=== PATIENT | female | born 1950 | race Caucasian/White ===

== ENCOUNTER 2017-01-29 06:27 | Day surgery (SDC) | payer BC, MEDICARE ==
[2017-01-29] MEDS ORDERED: Sodium Chloride 0.9% 1,000 ML IV SCH (07:00)
[2017-01-29] MEDS ORDERED: Midazolam 1 MG/ML 2 ML SDV ONE (07:16)
[2017-01-29] MEDS ORDERED: Propofol 200 MG/20 ML SDV ONE (07:16)
[2017-01-29] MEDS ORDERED: fentaNYL 100 MCG/2 ML SDV ONE (07:16)
[2017-01-29 09:12] VITALS: BP 135/59
--- NOTE | 2017-01-30 08:39 | OR ---
DATE OF PROCEDURE: 01/29/2017 PROCEDURE: Colonoscopy. FINDINGS: 1. Diverticulosis, moderate, limited to the sigmoid colon. 2. No other gross abnormalities. COMPLICATIONS: None. MDS NURSE: None. ANESTHESIA: MAC. RISKS: Risks, benefits, alternatives, and limitations including but not limited to infection, bleeding, and perforation were explained to the patient, and they wished to proceed. PREOPERATIVE DIAGNOSIS: Family history of colorectal cancer. POSTOPERATIVE DIAGNOSIS: Family history of colorectal cancer. PROCEDURE IN DETAIL: The patient was placed in left lateral decubitus position. Digital rectal exam was performed without abnormality. The scope was introduced and advanced atraumatically to the ileocecal valve. The scope was brought back to the ascending, transverse, descending colon, and retroflexed. No evidence of old or new blood. The patient's diverticulosis would be described as mild to moderate and limited to sigmoid colon. No polyps or no other abnormalities. The patient tolerated the procedure well. Yrn Beck MD /[id number]
== END 2017-01-29 09:28 | disposition home or self-care (01) ==
LOC: JP.SDS 06:27
PROVIDERS: ATTEND Surgery
DX: Z12.11 Encounter for screening for malignant neoplasm of colon (principal); K57.30 Diverticulosis of large intestine without perforation or abscess without bleeding; Z80.0 Family history of malignant neoplasm of digestive organs; J45.909 Unspecified asthma, uncomplicated; E78.00 Pure hypercholesterolemia, unspecified; Z88.0 Allergy status to penicillin; Z98.890 Other specified postprocedural states; Z98.51 Tubal ligation status
CPT/HCPCS: 45378; J2250; J2704; J3010; J7040

== ENCOUNTER 2022-03-15 08:49 | Day surgery (SDC) | payer MEDICARE, OTHER ==
[2022-03-15] MEDS ORDERED: Sodium Chloride 0.9% 1,000 ML IV SCH (09:30)
[2022-03-15] MEDS ORDERED: fentaNYL 100 MCG/2 ML SDV ONE (09:56)
[2022-03-15] MEDS ORDERED: Propofol 200 MG/20 ML SDV ONE (09:56)
[2022-03-15 11:43] VITALS: PULSE 63
[2022-03-15 11:44] VITALS: BP 133/45
== END 2022-03-15 11:57 | disposition home or self-care (01) ==
LOC: JP.SDS 08:49
PROVIDERS: ATTEND Surgery
DX: Z12.11 Encounter for screening for malignant neoplasm of colon (principal); K57.30 Diverticulosis of large intestine without perforation or abscess without bleeding; K21.9 Gastro-esophageal reflux disease without esophagitis; Z80.0 Family history of malignant neoplasm of digestive organs; Z88.0 Allergy status to penicillin
CPT/HCPCS: J2704; J3010; J7030

== ENCOUNTER 2023-10-09 10:55 | Emergency (ER) | payer MEDICARE, OTHER ==
[2023-10-09] MEDS: Methocarbamol 500 MG Tab PO ONE (13:49)
[2023-10-09 14:16] VITALS: BP 118/80; PULSE 71
== END 2023-10-09 14:15 | disposition home or self-care (01) ==
LOC: JP.ED 10:55
DX: M62.830 Muscle spasm of back (principal); E78.00 Pure hypercholesterolemia, unspecified; Z88.0 Allergy status to penicillin; Z79.899 Other long term (current) drug therapy
CPT/HCPCS: 99283; A9270